=== PATIENT | male | born 1940 | race Caucasian/White ===

== ENCOUNTER 2018-07-12 06:59 | Inpatient (IN) ==
[2018-07-12] MEDS ORDERED: Metoprolol Tartrate 25 MG Tablet PO ONE (07:45)
[2018-07-12] MEDS ORDERED: Chlorhexidine Gluconate 2% 1 Pack (2 Cloths) TOPICAL ONE (07:45)
[2018-07-12] MEDS ORDERED: Sodium Chlor 0.9% Inj 500 ML IV.CONT ONE (07:45)
[2018-07-12] MEDS ORDERED: Sodium Chlor 0.9% Inj 40 ML, Bupivacaine Liposo PF 1.3% Inj 20 ML P-ARTICULR ONE ×2 (07:51)
[2018-07-12] MEDS ORDERED: Dexamethasone Inj 20 MG/5 ML Vial IV.PUSH ONE (07:51)
[2018-07-12] MEDS ORDERED: SODIUM CHLOR 0.9% IV.SIG SCH ×2 (08:00→13:00)
[2018-07-12] MEDS ORDERED: ceFAZolin 2 GM Premix Inj 2 GM/50 ML PIGGYBACK IV.SIG SCH (08:00)
[2018-07-12] MEDS ORDERED: Vancomycin Inj 1,000 MG in Sodium Chlor 0.9% Inj 250 ML IV.SIG SCH (08:00)
[2018-07-12] MEDS ORDERED: TRANEXAMIC ACID IV.SIG SCH ×2 (08:00→13:00)
[2018-07-12] MEDS ORDERED: Chlorhexidine 4% Topical 120 APPLIC/120 ML Bottle TOPICAL SCH (08:00)
[2018-07-12 08:26] LABS: INR 1.2 Ratio
[2018-07-12] MEDS ORDERED: Ketamine Inj 50 MG/5 ML Syringe IV.PUSH ONE (09:33)
[2018-07-12] MEDS ORDERED: Famotidine PF Inj 20 MG/2 ML Vial ONE (09:34)
[2018-07-12] MEDS ORDERED: fentaNYL Citrate Inj 100 MCG/2 ML Ampul ONE (09:34)
[2018-07-12] MEDS ORDERED: fentaNYL Citrate Inj 250 MCG/5 ML Ampul ONE (09:34)
[2018-07-12] MEDS ORDERED: Aluminum/Magnesium/Simethacone Susp 30 ML UDC PO PRN (11:57)
[2018-07-12] MEDS ORDERED: Post-op Orders (for Pharmacy) OTHER STA (11:57)
[2018-07-12] MEDS ORDERED: Bisacodyl 10 MG Supp RECTAL PRN (11:57)
[2018-07-12] MEDS ORDERED: Morphine Inj 4 MG/ML Vial IV.PUSH PRN (11:57)
[2018-07-12] MEDS ORDERED: Sugammadex Inj 200 MG/2 ML Vial IV.PUSH ONE (11:58)
--- NOTE | 2018-07-12 12:00 | P.OP ---
- Preoperative Diagnosis (1) Osteoarthritis of left hip - Postoperative Diagnosis (1) Osteoarthritis of left hip Date of procedure: 07/12/18 Procedure: Left total hip arthroplasty Anesthesia: GETA Surgeon: Jaren Palomo MD Felt Tipping Machine Tender: ELI Michael The surgical procedure was assisted by my Advanced Registered Nurse Practitioner. My HOST/HOSTESS HEAD presence was necessary throughout this case for the manipulation and positioning of the surgical extremity. My HOST/HOSTESS HEAD was assisting me throughout the duration of this procedure. The skill set of an Advance Registered Nurse Practitioner was medically necessary to complete this procedure. During the surgical case, the morgue technician was working at the back table and the Advance Registered Nurse Practitioner was directly assisting me. Operation and Findings: IMPLANT DESCRIPTION ([employer]): 1. Iola Gription Cup, acetabular size 56. 2. Iola AltrX polyethylene, neutral. 4. Corail femoral stem size 13, no collar, standard offset. 5. Femoral head/neck metal, +1.5, 36. ESTIMATED BLOOD LOSS: 250 cc. JUSTIFICATION FOR PROCEDURE: The patient has end-stage osteoarthritis to the hip. There is an attached conservative measures pathway form in the chart that describes the nonoperative measures that were undertaken prior to consideration of surgical management. The patient understood the risks and benefits of surgical management. See my office notes for further details. PROCEDURE: The patient was brought back to the operative theatre. Adequate anesthesia was obtained. The patient received intravenous vancomycin and Ancef. The patient was carefully placed on the operative table. The lower extremity was prepped and draped in the usual sterile fashion. Fluoroscopic images were obtained. We made a standard anterior incision over the hip. We dissected through the TFL fascia, exposing the anterior capsule. Arthrotomy was performed in a T-shaped fashion. The capsule was tagged with a #2 FiberWire. End-stage arthritis was identified. Osteotomy was performed through the femoral neck exposing the acetabulum. Remnants of the labrum were resected and osteophytes were removed. We sequentially reamed the acetabulum. We trialed the hip and placed the final cup into position. This was done under fluoroscopic guidance to obtain the appropriate inclination and anteversion. A manhole cover was placed into the acetabular component. We then placed the final polyethylene into position and confirmed that it was well seated. Capsular attachments on the calcar and the inner aspect of the greater trochanter were resected. On the proximal aspect of the femur we used a rongeur , box osteotome, canal finder, sequential broaches and lateralizing rasp. We calcar planed the proximal femur. Then thoroughly irrigated the wound. We trialed the hip with the appropriate size stem. We placed the final stem in to position and trialed again. The hip was stable while it was externally rotated 70 degrees when the leg was lowered to the floor. The final head was applied, and final fluoroscopic images were obtained. The wound was thoroughly irrigated again. Interarticular injection of liposomal bupivacaine was given. The capsule was closed with #2 FiberWire and #1 Vicryl. The deep fascia was closed with a #2 Stratafix, followed by 2-0 Vicryl in the skin and Dermabond dressing. Postop plan is to weight-bear as tolerated. DVT prophylaxis will be performed with SCDs, YANCY concepcion, early mobilization, and Lovenox bridge for 3 days with resumption of outpatient dose of Coumadin starting tonight.
--- NOTE | 2018-07-12 12:09 | XR ---
EXAM DATE: 07/12/2018 12:05 PM EST AGE/SEX: 78 years / Male INDICATIONS: Left anterior hip replacement done in operating room. CLINICAL DATA: This is the patient's initial encounter. Patient reports that signs and symptoms have been present for 1 day and indicates a pain score of Nonresponsive. MEDICAL/SURGICAL HISTORY: None. None. COMPARISON: POI, XR PELVIS AP, 02/08/2017. . FINDINGS: Left total hip arthroplasty is present. Hardware appears intact. Alignment is anatomic. Visualized ad jacent pelvis is unremarkable. CONCLUSION: Satisfactory appearance of left ISABELLA Electronically signed by: Nitish Hanson MD 07/12/2018 12:08 PM EST
[2018-07-12] MEDS ORDERED: *Ondansetron Inj 4 MG/2 ML Vial PERIprocedural Use ONLY ONE (12:30)
--- NOTE | 2018-07-12 12:30 | P.DCO ---
- Physical Therapy Physical Therapy: Gait training, Transfer training, bed to chair Hip: Total hip Left Lower Extremity Weight Bearing: Weight bearing as tolerated Left Lower Extremity Range of Motion: Active ROM - Nursing Nursing: Lovenox teaching Dressing changes: Do not change dressing Additional instructions: Patient is bridging his Coumadin with Lovenox until therapeutic. Check INR as ordered. First dressing change in the office. - Certification Need for Home Health services: I have seen patient James Goldbergbarber COTO on 07/12/18. My clinical findings support the need for the requested home health care services because: Need for Home Health Services: Limited ability to care for self, High risk of falls Homebound Certification: I certify that my clinical findings support that this patient is homebound because: Homebound Certification: Post-op weakness, Unsteady gait/balance
[2018-07-12] MEDS: Sod Chloride 0.9% Inj 1,000 ML IV.CONT SCH (12:37)
--- NOTE | 2018-07-12 14:16 | XR ---
EXAM DATE: 07/12/2018 2:14 PM EST AGE/SEX: 78 years / Male INDICATIONS: Post-op left hip. CLINICAL DATA: This is the patient's initial encounter. Patient reports that signs and symptoms have been present for 1 day and indicates a pain score of 5/10. MEDICAL/SURGICAL HISTORY: Arthritis. Hypertension. . Ablation COMPARISON: POI, XR PELVIS AP, 02/08/2017. . FINDINGS: Left total hip arthroplasty is present. The hardware is intact. Alignment is anatomic. The adjacent p elia is unremarkable. There are moderate degenerative changes in the contralateral right hip. CONCLUSION: Satisfactory appearance post left ISABELLA Electronically signed by: Nitish Hanson MD 07/12/2018 2:15 PM EST
[2018-07-12] MEDS: ceFAZolin 1 GM Premix Inj 1 GM/50 ML IV.SIG SCH (15:41)
[2018-07-12] MEDS ORDERED: Zolpidem Tartrate 5 MG Tablet PO PRN (21:00)
[2018-07-12] MEDS: Multivitamin/Minerals Therapeutic Tablet PO SCH (22:19)
[2018-07-12] MEDS: Senna/Docusate Sodium 8.6/50 MG Tablet PO SCH (22:19)
[2018-07-13] MEDS: ceFAZolin 1 GM Premix Inj 1 GM/50 ML IV.SIG SCH ×2 (00:22→05:00)
[2018-07-13] MEDS: Sod Chloride 0.9% Inj 1,000 ML IV.CONT SCH ×2 (05:02→13:33)
[2018-07-13 05:30] LABS: Hematocrit 38.1 % (39.0-51.0)
--- NOTE | 2018-07-13 07:16 | P.PNOP ---
Subjective Interval history: The patient is resting comfortably in bed in no acute distress. The patient reports mild pain to the left hip. The patient complains of some mild burning around the incision. The patient does want to go home with home health but is considering staying an additional night due to some of his comorbidities and concerns by his . Physical Exam Vital signs: Vital Signs 07/12/18 08:00 07/12/18 12:26 07/12/18 12:30 Temperature 97.9 F 98.5 F Pulse Rate 95 H 85 91 H Respiratory Rate 18 16 14 Blood Pressure 106/80 136/87 134/83 Pulse Oximetry 98 99 99 07/12/18 12:45 07/12/18 13:00 07/12/18 13:30 Temperature Pulse Rate 88 91 H 90 Respiratory Rate 20 19 22 Blood Pressure 131/79 136/87 114/86 Pulse Oximetry 97 98 95 07/12/18 15:30 07/12/18 17:46 07/12/18 20:00 Temperature 97.3 F L 97.6 F Pulse Rate 87 92 H 93 H Respiratory Rate 14 18 18 Blood Pressure 115/61 138/72 114/69 Pulse Oximetry 95 96 95 07/13/18 00:00 07/13/18 04:00 Temperature 97.7 F 97.2 F L Pulse Rate 95 H 90 Respiratory Rate 18 18 Blood Pressure 99/62 L 106/63 Pulse Oximetry 954 H 95 Intake & Output 07/12/18 07/13/18 07/13/18 18:59 06:59 18:59 Intake Total 750.30 / 750.30 1122 / 1122 Output Total 1150 / 1150 Balance 750.30 / 750.30 - Weight 101.5 kg 102.5 kg Intake: IV 570.30 / 570.30 822 / 822 NS Inj 1,000 ML @ 80 mls/hr IV. 722 / 722 CONT .[id number] SURENDRA Rx#:[id number] Cyklokapron Inj 1,015 MG In NS 220.30 / 220.30 Inj 100 ML @ 200 mls/hr IV.SIG STEMMER MACHINE SURENDRA Rx#:[id number] Vancomycin Inj 1,000 MG In NS 250 / 250 Inj 250 ML @ 250 mls/hr IV.SIG STEMMER MACHINE SURENDRA Rx#:[id number] Ancef 1 GM Premix Inj 1 gm In 50 / 50 100 / 100 50 ml @ 100 mls/hr IV.SIG Q6H SURENDRA Rx#:[id number] Ancef 2 GM Premix Inj 2 gm In 50 / 50 50 ml @ 100 mls/hr IV.SIG STEMMER MACHINE [facility] Rx#:[id number] Oral 180 / 180 300 / 300 Output: Urine 1150 / 1150 Other: Date of Last Bowel Movement 07/12/18 07/12/18 Weight On Admission 101.5 kg Narrative: The patient's dressing is clean, dry, and intact. EHL/TA/G are intact. 2+ pedal pulse. The patient's calf is soft and nontender. Sensation is intact to light touch distally. Results - Labs CBC & Chem 7: 07/13/18 04:41 Laboratory Results - last 24 hr 07/12/18 07/12/18 07/13/18 07:45 07:45 04:41 Hgb 13.0 Hct 38.1 L PT 12.0 H D INR 1.2 Blood Type A Negative Blood Type Recheck Required Antibody Screen Negative - Imaging Impressions Hip X-Ray 07/12/18 00:00 CONCLUSION: Satisfactory appearance of left ISABELLA Hip X-Ray 07/12/18 11:57 CONCLUSION: Satisfactory appearance post left ISABELLA - Procedures Left total hip arthroplasty Assessment and Plan - Problem List (1) Status post total hip replacement, left Code(s): Z96.642 - Presence of left artificial hip joint Status: Acute (2) Osteoarthritis of left hip Code(s): M16.12 - Unilateral primary osteoarthritis, left hip Status: Acute - Assessment and Plan POD #1: Left total hip arthroplasty 1. Weightbearing as tolerated on left lower extremity. 2. Lovenox bridge for 3 days with resumption of Coumadin for DVT prophylaxis. Patient will require INR checks until therapeutic. 3. Ice as needed for swelling. 4. Stable per ortho for discharge to home health today or tomorrow. 5. The patient will follow up with Dr. aPlomo and/or ELI Rain as previously scheduled.
[2018-07-13] MEDS ORDERED: Dexamethasone Inj 20 MG/5 ML Vial IV.PUSH ONE (08:00)
[2018-07-13] MEDS: Multivitamin/Minerals Therapeutic Tablet PO SCH (08:11)
[2018-07-13] MEDS: Senna/Docusate Sodium 8.6/50 MG Tablet PO SCH (08:11)
[2018-07-13] MEDS ORDERED: Enoxaparin Inj 40 MG/0.4 ML Syringe SQ SCH (12:00)
[2018-07-13 13:22] VITALS: RESP 18
[2018-07-13 16:55] VITALS: BP 109/59; PULSE 99; TEMP 97.3; O2SAT 91
--- NOTE | 2018-07-14 17:06 | P.DS ---
Date of admission: 07/12/18 11:57 Primary care physician: Olu An MD Attending physician on discharge: Jaren Dias Anticipated date of discharge: 07/13/18 Brief History from admission: The patient was admitted to the hospital for severe OA of the left hip to have a left ISABELLA DS: Diagnosis - Discharge Diagnosis (1) Status post total hip replacement, left Status: Acute (2) Osteoarthritis of left hip Status: Acute DS: Summary Hospital Course: The patient was admitted to the hospital for severe osteoarthritis of the [left ] hip to have a [left] total hip arthroplasty. The patient's surgery went well with no complication. The patient is on a [regular] diet. The patient's DVT prophylaxis includes use of [Lovenox bridge for 3 days while resuming his normal dose of Coumadin]. The patient will have regular INR lab work to ensure he is therapeutic with his Coumadin. The patient is weightbearing as tolerated. The patient was discharged [home with home health] and will follow up in the office with Dr. Dias and/or ELI Rain as previously scheduled. - Time Spent with Patient Total time spent providing and/or coordinating discharge services: Greater than 30 minutes - Quality: VTE Deep Vein Thrombosis/Pulmonary Embolism Present on Admission: No Exam Vital signs: Intake & Output 07/13/18 07/14/18 07/14/18 18:59 06:59 18:59 Intake Total 1000 / 1000 Balance 1000 / 1000 Intake: IV 1000 / 1000 LR 1000 mL Inj 1,000 ML @ 30 1000 / 1000 mls/hr IV.CONT .Q24H ONE Rx#: [id number] Other: Date of Last Bowel Movement 07/12/18 Narrative: The patient's dressing is clean, dry, and intact. EHL/TA/G are intact. 2+ pedal pulse. The patient's calf is soft and nontender. Sensation is intact to light touch distally. Results Procedures completed during hospitalization: Left total hip arthroplasty - Impressions ITS Impressions Hip X-Ray 07/12/18 11:57 CONCLUSION: Satisfactory appearance post left ISABELLA Discharge Plan - Discharge Disposition Patient Disposition: W/Home Health Service - Discharge Condition Condition: Stable - Discharge Order Discharge Orders: Discharge Order (Routine); Ordered 07/12/18 Ordered By: Washington Lopes - Discharge Details Anticipated Discharge Date: 07/13/18 - Physicians Team Primary Care Provider: Olu An Attending Provider: Jaren Dias Other Providers: Nurse Oncall,Agency - Rxs /Orders / Referrals /Forms Prescriptions: Continue aspirin 81 mg Tablet,Chewable 81 mg PO DAILY metoprolol succinate [Toprol XL] 100 mg Tablet Extended Release 24 Hr 100 mg PO DAILY simvastatin 5 mg Tablet 5 mg PO QPM vitamin B complex [B Complex-Vitamin B12] Tablet 1 tab PO DAILY warfarin [Coumadin] 5 mg Tablet 5 mg PO DAILY Ambulatory Orders / Order Sets / DME: Adjustable Commode 3-in-1 (1 each) (Routine) Location: Determined by Patient Ordered By: Washington Lopes Walker With Front Wheels (1 each) (Routine) Location: Determined by Patient Ordered By: Washington Lopes Referrals: Jaren Dias MD [Physician] - See Instructions (f/u in the office as previously scheduled with Dr Dias or Earl Lopes APRN ) Olu An MD [Primary Care Provider] - See Instructions - Discharge Instructions Patient Printed Instructions: Hydrocodone/Acetaminophen (By mouth), Warfarin ( By mouth), Aspirin (By mouth), Enoxaparin (By injection), How to Choose and Use a Walker (GEN), Precautions after Total Joint Replacement Surgery (DC), Fall Prevention (GEN), Total Hip Replacement (DC) Additional Instructions: PRESCRIPTIONS PROVIDED AT PRE-OP APPOINTMENT. CONTINUE TO USE STOOL SOFTENERS/LAXATIVES WHILE TAKING NARCOTIC PAIN MEDICATIONS. DO NOT CHANGE SURGICAL BANDAGE. KEEP DRY AND INTACT. REPORT ANY INCREASED DRAINAGE, REDNESS, SWELLING, OR FEVER TO THE SURGEON. FOLLOW UP WITH DR. DIAS IN OFFICE WITHIN 2 WEEKS. - Post Discharge Care Plan Care Plan Goals: Discharge Care Plan Goals for Total Hip Replacement You had a hip replacement surgery. This means your natural hip was replaced with an artificial joint (prosthesis). You may be recovering at home or in a rehabilitation facility. Either way, you must take care of your new hip. Here are some goals to help you heal well. Directions to Meet your Goals: 1. Activity & Exercises: * Take pain medicine as directed by your doctor. * Dont drive until your doctor says its OK. And never drive while taking opioid pain medicine. * Wear the support stockings you were given in the hospital as directed by your surgeon. * Dont sit for more than 30 to 45 minutes at one time. * Dont lean forward while sitting. * Dont cross your legs. * Keep your feet flat on the floor. Dont turn your foot or leg inward. This stresses your hip joint. * Use an elevated toilet seat for 6 weeks after surgery. * Nap if you are tired, but dont stay in bed all day. * Sit on a firm cushion when you ride in a car and avoid sitting too low. Try not to bend your hip too much when getting in and out of the car. 2. Prevent Falls/Injury: * Follow your doctors orders regarding how much weight to put on the affected leg. * Dont bend at the hip when you bend over. Don't bend at the waist to put on socks and shoes. And avoid picking up items from the floor. * Use a cane, crutches, a walker, or handrails until your balance, flexibility, and strength improve. And remember to ask for help from others when you need it. * Free up your hands so that you can use them to keep balance. Use a rose pack , apron, or pockets to carry things. * Arrange your household to keep the items you need handy. Keep everything else out of the way. * Remove items that may cause you to fall, such as throw rugs and electrical cords. * Use nonslip bath mats, grab bars, an elevated toilet seat, and a shower chair in your bathroom * Sit on a shower stool or chair when you shower to keep from falling. 3. Precautions: * Prevent infection. Any infection will need to be treated immediately. Call your doctor right away if you think you might have an infection. * Tell your dentist that you have an artificial joint and take antibiotics as prescribed before any dental work. * Tell all your healthcare providers about your artificial joint before any medical procedure. * Maintain a healthy weight. Get help to lose any extra pounds. Added body weight puts stress on the joints. 4. Incision Care: * Prevent infection by washing your hands often. If an infection occurs, it will need to be treated right away. * Call your doctor right away if you think you may have an infection. Symptoms include a fever or an incision that leaks white, green, or yellow fluid. * Don't soak your incision in water until your doctor says its OK. This means no hot tubs, bathtubs, or swimming pools. * Follow your doctor's instructions for changing the dressing. * Dont rub the incision, or apply creams or lotions to it. * If you notice any redness or drainage around the bandage site, contact your surgeon's office immediately. 5. Follow-Up: Do Not miss your follow-up appointment. Keep up with all your appointments and yearly check ups When to call your doctor: Call your doctor right away if you have: Hip pain gets worse Pain or swelling in your calf or leg not related to your incision Tenderness or redness in your calf Fever of 100.4F (38C) or higher, or as directed by your healthcare provider Shaking chills Swelling or redness at the incision site gets worse Fluid draining from the incision Call 911: Call 911 right away if you have: Chest pain Shortness of breath Any pain or tenderness in your calf
== END 2018-07-13 20:54 | disposition home health service (06) ==
LOC: HSDC 06:59 → EDSTATUS 10:00 → HSDI 11:57 → N06 16:13
PROVIDERS: ADMIT Orthopaedic Surgery; ATTEND Orthopaedic Surgery